=== PATIENT | female | born 1985 | race Caucasian/White ===

== ENCOUNTER 2023-05-25 13:39 | Emergency (ER) | payer MEDICAID, SELFPAY ==
[2023-05-25 14:03] VITALS: BP 149/84; PULSE 94; RESP 18; TEMP 36.7; O2SAT 99
--- NOTE | 2023-05-25 15:20 | PC.NURSE ---
Pt came to triage desk and stated that she has to go to work but will come back at a less busy time. Pt encouraged to stay but reports she is unable to at this time and will return tonight or tomorrow to be seen. Ambulatory upon leaving ED in no acute distress.
== END 2023-05-25 15:20 | disposition left against medical advice (07) ==
LOC: ANHED 15:28
DX: M79.642 Pain in left hand (principal); M79.641 Pain in right hand
CPT/HCPCS: 99199

== ENCOUNTER 2024-01-10 11:20 | Outpatient (CLI) | payer OTHER, SELFPAY ==
--- NOTE | ~2024-01-10 | XR_ITS ---
Clinical Indication: Asthma PA and lateral views of the chest: Comparison: None Findings: The lungs are clear, without evidence of focal consolidation or pleural effusion. Cardiome diastinal silhouette is within normal limits. Bones and soft tissues are unremarkable. Impression: Normal chest. Reviewed, dictated and finalized at location . Impression: Normal chest.
[2024-01-10 11:40] LABS: Basophils Percent Auto 0.4 % (0.2-1.2); Eosinophils Absolute Auto 0.1 K/mm3 (0-0.3); Eosinophils Percent Auto 0.7 % (0-4.4); Hematocrit 37.5 % (37.0-47.0); Hemoglobin 12.5 g/dL (12.0-15.0); Immature Granulocyte Absolute 0.05 K/mm3 (0.00-0.031); Immature Granulocyte Percent A 0.5 % (0-0.5); Lymphocytes Absolute Auto 2.37 K/mm3 (0.9-3.2); Lymphocytes Percent Auto 23.7 % (18.3-44.2); Mean Corpuscular HGB Conc 33.3 g/dl (32-36); Mean Corpuscular Hemoglobin 28.7 pg (26-34); Mean Corpuscular Volume 86.2 fl (80-100); Mean Platelet Volume 9.5 fl (7.4-10.4); Monocytes Absolute Auto 0.6 K/mm3 (0.1-0.6); Monocytes Percent Auto 5.7 % (2.6-8.5); Neutrophils Absolute Auto 6.9 K/mm3 (1.3-6.7); Platelet Count Result 283 k/mm3 (150-375); Red Blood Count 4.35 M/mm3 (4.2-5.4); Red Cell Distribution Width 12.3 % (11.5-14.5)
== END 2024-01-10 11:21 | disposition home or self-care (01) ==
LOC: ANHLAB 11:23
PROVIDERS: Visit Provider Internal Medicine Pulmonary Disease
DX: J44.9 Chronic obstructive pulmonary disease, unspecified (principal)
CPT/HCPCS: 36415; 71046; 85025

== ENCOUNTER 2024-02-04 12:44 | Outpatient (CLI) | payer OTHER, SELFPAY ==
[2024-02-04] MEDS: METHACHOLINE CHLORIDE 18 ML VIAL.NEB INHALATION (13:23)
--- NOTE | 2024-02-05 12:38 | WPDMETH ---
Methacholine Procedure Perform Procedure Performed Methacholine Challenge Methacholine Challenge Methacholine Challenge: A methacholine challenge was conducted, according to the ATS/ERS 2017 guidelines' 5-step dosimeter protocol, with increments of methacholine quadrupling at each step. After the administration of 29.03 mcg of methacholine at the third step, the FEV1 decreased by a roughly 29% from the initial baseline measurement. Upon administering a short-acting bronchodilator, the FEV1 reverted to a level close to the baseline. Conclusion: Positive methacholine challenge test. Mild airway hyperresponsiveness.
== END 2024-02-04 12:45 | disposition home or self-care (01) ==
LOC: ANHPFT 12:46
PROVIDERS: Visit Provider Internal Medicine Pulmonary Disease
DX: J45.909 Unspecified asthma, uncomplicated (principal)
CPT/HCPCS: 94070; J7674